=== PATIENT | male | born 1955 | race Caucasian/White ===

== ENCOUNTER 2018-04-29 13:05 | Emergency (ER) | payer MEDICARE, OTHER ==
[~2018-04-29] VITALS: Ht 188 cm; Wt 87.0 kg
[2018-04-29 13:39] LABS: CLARITY,URINE CLEAR (Clear); COLOR,URINE YELLOW (Yellow); GLUCOSE, URINE NEGATIVE (Neg); KETONES,URINE NEGATIVE (Neg); LEUKOCYTE ESTERASE ,URINE MODERATE (Neg); NITRITES, URINE NEGATIVE (Neg); OCCULT BLOOD,URINE NEGATIVE (Neg); PH,URINE 6.5 (4.8-8.0); PROTEIN,URINE NEGATIVE (Neg); UROBILINOGEN,URINE 0.2 E.U/dL (0.2-1.0)
[2018-04-29 13:48] LABS: UA COLLECTION TYPE CLN CATCH MIDSTREAM
[2018-04-29 13:49] LABS: BACTERIA,URINE 1+ /HPF (Neg); MUCUS STRANDS FEW /LPF (Neg); RBC,URINE 0-2 /HPF (0-2); SQUAMOUS EPITHELIAL CELL,UR FEW /LPF (FEW)
[2018-04-29 13:50] LABS: BASOPHILS # (AUTO) 0.1 X10'3 (0-0.2); BASOPHILS % (AUTO) 1.6 % (0-1); EOSINOPHILS # (AUTO) 0.2 X10'3 (0-0.9); EOSINOPHILS % (AUTO) 2.9 % (0-6); HEMATOCRIT 46.6 % (42.0-52.0); HEMOGLOBIN 15.6 g/dl (14.0-17.9); LYMPHOCYTES # (AUTO) 1.5 X10'3 (1.1-4.8); LYMPHOCYTES % (AUTO) 17.9 % (21-51); MEAN CORPUSCULAR HEMOGLOBIN 31.8 PG (27.0-31.0); MEAN CORPUSCULAR HGB CONC 33.4 % (33.0-36.5); MEAN CORPUSCULAR VOLUME 95.3 FL (78-98); MEAN PLATELET VOLUME 11.2 FL (7.4-10.4); MONOCYTES # (AUTO) 0.7 X10'3 (0-0.9); MONOCYTES % (AUTO) 8.1 % (2-12); NEUTROPHILS # (AUTO) 5.8 X10'3 (1.8-7.7); NEUTROPHILS % (AUTO) 69.5 % (42-75); PLATELET COUNT 155 X10'3 (140-440); RED BLOOD COUNT 4.89 X10'6 (4.70-6.10); RED CELL DISTRIBUTION WIDTH 15.2 % (11.5-14.5); WHITE BLOOD COUNT 8.3 X10'3 (4.5-11.0)
[2018-04-29 14:02] LABS: PROTHROMBIN TIME 10.2 SECONDS (9.0-12.0)
[2018-04-29 14:05] LABS: ALANINE AMINOTRANSFERASE 36 U/L (12-78); ALBUMIN 3.4 G/DL (3.4-5.0); ALKALINE PHOSPHATASE 126 IU/L (46-116); ANION GAP 10 (8-16); ASPARTATE AMINO TRANSFERASE 30 U/L (10-37); BILIRUBIN,TOTAL 0.7 MG/DL (0.1-1.0); BLOOD UREA NITROGEN 3 MG/DL (7-18); CALCIUM 8.6 MG/DL (8.5-10.1); CHLORIDE 102 MMOL/L (99-107); GLUCOSE 88 MG/DL (70-104); LARGE PLATELETS FEW; PLATELET ESTIMATE NORMAL; POTASSIUM 3.4 MMOL/L (3.5-5.1); SODIUM 139 MMOL/L (135-145); TOTAL CARBON DIOXIDE 26.8 MMOL/L (24-32); TOTAL PROTEIN 6.7 G/DL (6.4-8.2)
[2018-04-29 14:17] LABS: BUN/CREATININE RATIO 4.3 (5.4-32.0); CREATININE 0.69 MG/DL (0.60-1.10); eGFR > 90 ML/MIN
[2018-04-29] MEDS ORDERED: HYDROcodone/acetaminophen 10/325mg tab PO ONE (14:40)
[2018-04-29] MEDS ORDERED: LEVO500T89 PO (14:41)
[2018-04-29] MEDS ORDERED: ACET1TAB12 PO (14:57)
[2018-04-29 15:05] VITALS: BP 114/65
== END 2018-04-29 15:08 | disposition home or self-care (01) ==
LOC: ER 13:06
DX: N39.0 Urinary tract infection, site not specified (principal); R05 Cough; R79.1 Abnormal coagulation profile; F17.200 Nicotine dependence, unspecified, uncomplicated; Z79.2 Long term (current) use of antibiotics; Z87.440 Personal history of urinary (tract) infections
CPT/HCPCS: 36415; 74176; 80053; 81001; 85025; 85610; 87077; 87088; 87186; 99285

== ENCOUNTER 2018-08-30 18:57 | Emergency (ER) | payer MEDICARE ==
[~2018-08-30] VITALS: Ht 188 cm; Wt 88.6 kg
[~2018-08-30 18:57] MED LIST: ACET1TAB12 PO
[2018-08-30 20:08] LABS: CLARITY,URINE CLEAR (Clear); COLOR,URINE YELLOW (Yellow); GLUCOSE, URINE NEGATIVE (Neg); KETONES,URINE NEGATIVE (Neg); LEUKOCYTE ESTERASE ,URINE TRACE (Neg); NITRITES, URINE NEGATIVE (Neg); OCCULT BLOOD,URINE NEGATIVE (Neg); PROTEIN,URINE NEGATIVE (Neg); UROBILINOGEN,URINE 0.2 E.U/dL (0.2-1.0)
[2018-08-30 20:11] LABS: BASOPHILS # (AUTO) 0.1 X10'3 (0-0.2); EOSINOPHILS % (AUTO) 2.4 % (0-6); HEMATOCRIT 45.8 % (42.0-52.0); RED CELL DISTRIBUTION WIDTH 15.7 % (11.5-14.5)
[2018-08-30 20:13] LABS: BASOPHILS % (AUTO) 0.9 % (0-1); EOSINOPHILS # (AUTO) 0.1 X10'3 (0-0.9); HEMOGLOBIN 15.7 g/dl (14.0-17.9); LYMPHOCYTES # (AUTO) 1.5 X10'3 (1.1-4.8); LYMPHOCYTES % (AUTO) 24.1 % (21-51); MEAN CORPUSCULAR HEMOGLOBIN 33.7 PG (27.0-31.0); MEAN CORPUSCULAR HGB CONC 34.3 g/dL (33.0-36.5); MEAN CORPUSCULAR VOLUME 98.4 FL (78-98); MEAN PLATELET VOLUME 10.6 FL (7.4-10.4); MONOCYTES # (AUTO) 0.8 X10'3 (0-0.9); MONOCYTES % (AUTO) 12.9 % (2-12); NEUTROPHILS # (AUTO) 3.7 X10'3 (1.8-7.7); NEUTROPHILS % (AUTO) 59.7 % (42-75); PLATELET COUNT 137 X10'3 (140-440); RED BLOOD COUNT 4.66 X10'6 (4.70-6.10); WHITE BLOOD COUNT 6.2 X10'3 (4.5-11.0)
[2018-08-30 20:21] LABS: PROTHROMBIN TIME 10.4 SECONDS (9.0-12.0)
[2018-08-30 20:23] LABS: ALANINE AMINOTRANSFERASE 62 U/L (12-78); ALBUMIN 3.4 G/DL (3.4-5.0); ALBUMIN/GLOBULIN RATIO 0.9 (1.1-1.5); ALKALINE PHOSPHATASE 150 IU/L (46-116); AMYLASE 87 U/L (25-115); ANION GAP 13 (8-16); ASPARTATE AMINO TRANSFERASE 83 U/L (10-37); BILIRUBIN,TOTAL 0.8 MG/DL (0.1-1.0); BLOOD UREA NITROGEN 4 MG/DL (7-18); BUN/CREATININE RATIO 5.7 (5.4-32.0); CALCIUM 8.9 MG/DL (8.5-10.1); CHLORIDE 101 MMOL/L (99-107); GLUCOSE 112 MG/DL (70-104); LIPASE 216 U/L (73-393); POTASSIUM 3.8 MMOL/L (3.5-5.1); SODIUM 138 MMOL/L (135-145); TOTAL CARBON DIOXIDE 24.1 MMOL/L (24-32); eGFR > 90 ML/MIN
[2018-08-30 20:28] LABS: UA COLLECTION TYPE VOIDED
[2018-08-30 20:31] LABS: BACTERIA,URINE 2+ /HPF (Neg); RBC,URINE 0-2 /HPF (0-2); SQUAMOUS EPITHELIAL CELL,UR FEW /LPF (FEW); WBC,URINE 0-4 /HPF (0-4)
[2018-08-30 20:45] LABS: LARGE PLATELETS FEW; PLATELET ESTIMATE DECREASED
[2018-08-30] MEDS ORDERED: ONDA4TAB6 PO (22:24)
[2018-08-30] MEDS ORDERED: OMEP20CA10 PO (22:24)
[2018-08-30] MEDS ORDERED: FAMO20TA44 PO (22:24)
[2018-08-30] MEDS ORDERED: LIDOcaine Viscous 15ml cup MM PRN (22:25)
[2018-08-30] MEDS ORDERED: sucralfate 1gm/10ml UD suspension PO SCH (22:25)
[2018-08-30] MEDS ORDERED: mag hydrox/Alum hydrox/simeth 30ml oral suspension PO ONE (22:25)
[2018-08-30 22:42] VITALS: BP 119/83
== END 2018-08-30 22:44 | disposition home or self-care (01) ==
LOC: ER 19:00
DX: K29.00 Acute gastritis without bleeding (principal); R10.13 Epigastric pain; Z90.49 Acquired absence of other specified parts of digestive tract
CPT/HCPCS: 36415; 80053; 81001; 82150; 83690; 85025; 85610; 87077; 87088; 87186; 99283

== ENCOUNTER 2018-10-17 20:14 | Emergency (ER) | payer MEDICARE ==
[~2018-10-17] VITALS: Ht 188 cm; Wt 88.2 kg
[~2018-10-17 20:14] MED LIST changes: +FAMO20TA44 PO; +OMEP20CA10 PO; +ONDA4TAB6 PO
[2018-10-17 21:48] LABS: CLARITY,URINE CLEAR (Clear); COLOR,URINE YELLOW (Yellow); GLUCOSE, URINE NEGATIVE (Neg); KETONES,URINE 15 mg/dl (Neg); LEUKOCYTE ESTERASE ,URINE NEGATIVE (Neg); NITRITES, URINE NEGATIVE (Neg); OCCULT BLOOD,URINE NEGATIVE (Neg); PH,URINE 6.5 (4.8-8.0); PROTEIN,URINE NEGATIVE (Neg); UROBILINOGEN,URINE 0.2 E.U/dL (0.2-1.0)
[2018-10-17] MEDS ORDERED: ondansetron/PF 4mg/2ml inj IV ONE (21:50)
[2018-10-17] MEDS ORDERED: normal saline 1000ML IV soln IVB ONE (21:50)
[2018-10-17 21:51] LABS: UA COLLECTION TYPE CLN CATCH MIDSTREAM
[2018-10-17 21:52] LABS: BASOPHILS # (AUTO) 0.1 X10'3 (0-0.2); BASOPHILS % (AUTO) 0.9 % (0-1); EOSINOPHILS # (AUTO) 0.3 X10'3 (0-0.9); EOSINOPHILS % (AUTO) 3.6 % (0-6); HEMATOCRIT 42.5 % (42.0-52.0); HEMOGLOBIN 14.5 g/dl (14.0-17.9); LYMPHOCYTES # (AUTO) 1.9 X10'3 (1.1-4.8); LYMPHOCYTES % (AUTO) 22.8 % (21-51); MEAN CORPUSCULAR HEMOGLOBIN 33.4 PG (27.0-31.0); MEAN CORPUSCULAR VOLUME 98.2 FL (78-98); MEAN PLATELET VOLUME 10.6 FL (7.4-10.4); MONOCYTES # (AUTO) 0.8 X10'3 (0-0.9); MONOCYTES % (AUTO) 10.3 % (2-12); NEUTROPHILS # (AUTO) 5.1 X10'3 (1.8-7.7); NEUTROPHILS % (AUTO) 62.4 % (42-75); PLATELET COUNT 162 X10'3 (140-440); RED BLOOD COUNT 4.33 X10'6 (4.70-6.10); RED CELL DISTRIBUTION WIDTH 13.8 % (11.5-14.5); WHITE BLOOD COUNT 8.2 X10'3 (4.5-11.0)
[2018-10-17 22:00] LABS: ALANINE AMINOTRANSFERASE 75 U/L (12-78); ALBUMIN 3.2 G/DL (3.4-5.0); ALKALINE PHOSPHATASE 158 IU/L (46-116); ANION GAP 11 (8-16); ASPARTATE AMINO TRANSFERASE 82 U/L (10-37); BLOOD UREA NITROGEN 11 MG/DL (7-18); BUN/CREATININE RATIO 17.2 (5.4-32.0); CALCIUM 8.3 MG/DL (8.5-10.1); CHLORIDE 103 MMOL/L (99-107); CREATININE 0.64 MG/DL (0.60-1.10); GLUCOSE 84 MG/DL (70-104); LIPASE 230 U/L (73-393); POTASSIUM 3.6 MMOL/L (3.5-5.1); SODIUM 137 MMOL/L (135-145); TOTAL CARBON DIOXIDE 22.6 MMOL/L (24-32); TOTAL PROTEIN 6.4 G/DL (6.4-8.2); eGFR > 90 ML/MIN
[2018-10-17] MEDS: morphine 4 MG/ML inj SYRINge IV PRN (22:02)
[2018-10-17 22:09] LABS: INR 1.1 INR
[2018-10-17 23:01] LABS: LARGE PLATELETS FEW; PLATELET ESTIMATE NORMAL
[2018-10-18] MEDS: morphine 4 MG/ML inj SYRINge IV PRN (00:08)
[2018-10-18] MEDS ORDERED: ondansetron 4mg rapidly disintigrating tab PO ONE (02:55)
[2018-10-18 03:30] VITALS: BP 120/70
== END 2018-10-18 03:26 | disposition home or self-care (01) ==
LOC: ER 20:14
DX: K85.90 Acute pancreatitis without necrosis or infection, unspecified (principal); R11.2 Nausea with vomiting, unspecified; Z90.49 Acquired absence of other specified parts of digestive tract; Z79.899 Other long term (current) drug therapy
CPT/HCPCS: 36415; 80053; 81003; 83690; 85025; 85610; 86885; 86900; 86901; 96361; 96374; 96375; 96376; 99283; J2270; J2405; J7030

== ENCOUNTER 2018-10-19 15:38 | Emergency (ER) | payer MEDICARE ==
[~2018-10-19] VITALS: Ht 188 cm; Wt 88.6 kg
[2018-10-19] MEDS ORDERED: normal saline 1000ml 1,000 ML IV ONE ×2 (16:15→17:55)
[2018-10-19] MEDS ORDERED: HYDROmorphone inj. 0.5 MG/0.5 ML DISP.SYRIN IV ONE ×2 (16:15→17:55)
[2018-10-19] MEDS ORDERED: ondansetron/PF 4mg/2ml inj IV ONE (16:15)
[2018-10-19 16:16] LABS: BASOPHILS # (AUTO) 0.1 X10'3 (0-0.2); BASOPHILS % (AUTO) 0.7 % (0-1); EOSINOPHILS # (AUTO) 0.1 X10'3 (0-0.9); EOSINOPHILS % (AUTO) 1.7 % (0-6); HEMATOCRIT 32.2 % (42.0-52.0); HEMOGLOBIN 11.2 g/dl (14.0-17.9); LYMPHOCYTES # (AUTO) 1.5 X10'3 (1.1-4.8); LYMPHOCYTES % (AUTO) 17.6 % (21-51); MEAN CORPUSCULAR HEMOGLOBIN 33.8 PG (27.0-31.0); MEAN CORPUSCULAR HGB CONC 34.7 g/dL (33.0-36.5); MEAN CORPUSCULAR VOLUME 97.5 FL (78-98); MEAN PLATELET VOLUME 10.1 FL (7.4-10.4); MONOCYTES # (AUTO) 0.5 X10'3 (0-0.9); MONOCYTES % (AUTO) 5.9 % (2-12); NEUTROPHILS # (AUTO) 6.3 X10'3 (1.8-7.7); NEUTROPHILS % (AUTO) 74.1 % (42-75); PLATELET COUNT 113 X10'3 (140-440); RED CELL DISTRIBUTION WIDTH 13.8 % (11.5-14.5); WHITE BLOOD COUNT 8.5 X10'3 (4.5-11.0)
[2018-10-19 16:32] LABS: ALANINE AMINOTRANSFERASE 47 U/L (12-78); ALBUMIN 3.1 G/DL (3.4-5.0); ALBUMIN/GLOBULIN RATIO 1.1 (1.1-1.5); ALKALINE PHOSPHATASE 124 IU/L (46-116); ANION GAP 6 (8-16); ASPARTATE AMINO TRANSFERASE 37 U/L (10-37); BILIRUBIN,TOTAL 1.3 MG/DL (0.1-1.0); BLOOD UREA NITROGEN 5 MG/DL (7-18); BUN/CREATININE RATIO 7.7 (5.4-32.0); CALCIUM 8.3 MG/DL (8.5-10.1); CHLORIDE 98 MMOL/L (99-107); CREATININE 0.65 MG/DL (0.60-1.10); GLUCOSE 89 MG/DL (70-104); LIPASE 292 U/L (73-393); POTASSIUM 3.2 MMOL/L (3.5-5.1); SODIUM 134 MMOL/L (135-145); TOTAL CARBON DIOXIDE 29.8 MMOL/L (24-32); TOTAL PROTEIN 5.9 G/DL (6.4-8.2); eGFR > 90 ML/MIN
[2018-10-19 16:47] LABS: INR 1.1 INR
[2018-10-19 17:15] LABS: CLARITY,URINE CLEAR (Clear); COLOR,URINE STRAW (Yellow); GLUCOSE, URINE NEGATIVE (Neg); KETONES,URINE NEGATIVE (Neg); LEUKOCYTE ESTERASE ,URINE NEGATIVE (Neg); NITRITES, URINE NEGATIVE (Neg); OCCULT BLOOD,URINE NEGATIVE (Neg); PH,URINE 7.5 (4.8-8.0); PROTEIN,URINE NEGATIVE (Neg); UROBILINOGEN,URINE 0.2 E.U/dL (0.2-1.0)
[2018-10-19 17:23] LABS: UA COLLECTION TYPE CLN CATCH MIDSTREAM
[2018-10-19] MEDS ORDERED: famotidine/PF 10 mg/ml inj IV ONE (17:55)
[2018-10-19 19:13] VITALS: BP 131/65
== END 2018-10-19 19:17 | disposition home or self-care (01) ==
LOC: ER 15:38
DX: R10.11 Right upper quadrant pain (principal); R10.13 Epigastric pain; G89.29 Other chronic pain; Z90.49 Acquired absence of other specified parts of digestive tract; Z87.19 Personal history of other diseases of the digestive system; Z79.899 Other long term (current) drug therapy
CPT/HCPCS: 36415; 80053; 81003; 83690; 85025; 85610; 96361; 96374; 96375; 96376; 99284; J1170; J2405; J3490; J7030

== ENCOUNTER 2018-10-22 22:54 | Emergency (ER) | payer MEDICARE ==
[~2018-10-22] VITALS: Ht 188 cm; Wt 88.0 kg
[2018-10-22 22:55] VITALS: BP 111/71
[2018-10-22 23:28] LABS: BASOPHILS % (AUTO) 0.6 % (0-1); EOSINOPHILS # (AUTO) 0.1 X10'3 (0-0.9); EOSINOPHILS % (AUTO) 2.1 % (0-6); HEMATOCRIT 31.8 % (42.0-52.0); HEMOGLOBIN 10.8 g/dl (14.0-17.9); LYMPHOCYTES % (AUTO) 20.6 % (21-51); MEAN CORPUSCULAR HEMOGLOBIN 33.7 PG (27.0-31.0); MEAN CORPUSCULAR VOLUME 99.3 FL (78-98); MEAN PLATELET VOLUME 10.7 FL (7.4-10.4); MONOCYTES # (AUTO) 0.8 X10'3 (0-0.9); MONOCYTES % (AUTO) 16.2 % (2-12); NEUTROPHILS # (AUTO) 2.9 X10'3 (1.8-7.7); NEUTROPHILS % (AUTO) 60.5 % (42-75); PLATELET COUNT 92 X10'3 (140-440); RED CELL DISTRIBUTION WIDTH 14.2 % (11.5-14.5); WHITE BLOOD COUNT 4.8 X10'3 (4.5-11.0)
[2018-10-22 23:46] LABS: ALANINE AMINOTRANSFERASE 35 U/L (12-78); ALBUMIN 2.7 G/DL (3.4-5.0); ALBUMIN/GLOBULIN RATIO 0.8 (1.1-1.5); ALKALINE PHOSPHATASE 120 IU/L (46-116); AMYLASE 106 U/L (25-115); ANION GAP 9 (8-16); ASPARTATE AMINO TRANSFERASE 38 U/L (10-37); BILIRUBIN,TOTAL 0.5 MG/DL (0.1-1.0); BLOOD UREA NITROGEN 3 MG/DL (7-18); BUN/CREATININE RATIO 5.1 (5.4-32.0); CALCIUM 7.7 MG/DL (8.5-10.1); CHLORIDE 103 MMOL/L (99-107); CREATININE 0.59 MG/DL (0.60-1.10); GLUCOSE 86 MG/DL (70-104); LIPASE 331 U/L (73-393); SODIUM 136 MMOL/L (135-145); TOTAL CARBON DIOXIDE 24.5 MMOL/L (24-32); TOTAL PROTEIN 5.9 G/DL (6.4-8.2); eGFR > 90 ML/MIN
[2018-10-22 23:49] LABS: INR 1.1 INR; POTASSIUM 3.3 MMOL/L (3.5-5.1)
[2018-10-23] MEDS ORDERED: OMEP40CA37 PO (00:22)
[2018-10-23] MEDS ORDERED: HYDROcodone/acetaminophen 5mg/325mg tablet PO ONE (00:25)
[2018-10-23] MEDS ORDERED: famotidine 20mg tablet PO ONE (00:25)
[2018-10-23] MEDS ORDERED: ondansetron 4mg rapidly disintigrating tab PO ONE (00:25)
[2018-10-23] MEDS ORDERED: ibuprofen tablet 400 MG TABLET PO ONE (00:25)
== END 2018-10-23 00:32 | disposition home or self-care (01) ==
LOC: ER 22:55
DX: R10.33 Periumbilical pain (principal); R10.13 Epigastric pain; R19.7 Diarrhea, unspecified; G89.29 Other chronic pain; Z90.49 Acquired absence of other specified parts of digestive tract; Z56.0 Unemployment, unspecified
CPT/HCPCS: 36415; 80053; 82150; 83690; 85025; 85610; 99284

== ENCOUNTER 2018-10-28 21:46 | Emergency (ER) | payer MEDICARE ==
[~2018-10-28] VITALS: Ht 188 cm; Wt 88.0 kg
[~2018-10-28 21:46] MED LIST changes: +OMEP40CA37 PO
[2018-10-28 22:17] LABS: BASOPHILS # (AUTO) 0.1 X10'3 (0-0.2); EOSINOPHILS # (AUTO) 0.1 X10'3 (0-0.9); EOSINOPHILS % (AUTO) 1.8 % (0-6); HEMATOCRIT 38.7 % (42.0-52.0); LYMPHOCYTES # (AUTO) 1.9 X10'3 (1.1-4.8); LYMPHOCYTES % (AUTO) 23.1 % (21-51); MEAN CORPUSCULAR HEMOGLOBIN 33.1 PG (27.0-31.0); MEAN CORPUSCULAR HGB CONC 33.6 g/dL (33.0-36.5); MEAN CORPUSCULAR VOLUME 98.4 FL (78-98); MEAN PLATELET VOLUME 9.9 FL (7.4-10.4); MONOCYTES # (AUTO) 1.1 X10'3 (0-0.9); MONOCYTES % (AUTO) 13.5 % (2-12); NEUTROPHILS % (AUTO) 60.6 % (42-75); PLATELET COUNT 249 X10'3 (140-440); RED BLOOD COUNT 3.93 X10'6 (4.70-6.10); RED CELL DISTRIBUTION WIDTH 13.9 % (11.5-14.5); WHITE BLOOD COUNT 8.3 X10'3 (4.5-11.0)
[2018-10-28 22:26] LABS: INR 1.1 INR
[2018-10-28 22:28] LABS: ALANINE AMINOTRANSFERASE 34 U/L (12-78); ALBUMIN 3.3 G/DL (3.4-5.0); ALBUMIN/GLOBULIN RATIO 0.9 (1.1-1.5); ALKALINE PHOSPHATASE 142 IU/L (46-116); AMYLASE 154 U/L (25-115); ANION GAP 11 (8-16); ASPARTATE AMINO TRANSFERASE 33 U/L (10-37); BILIRUBIN,TOTAL 0.8 MG/DL (0.1-1.0); BLOOD UREA NITROGEN 3 MG/DL (7-18); BUN/CREATININE RATIO 4.2 (5.4-32.0); CALCIUM 8.6 MG/DL (8.5-10.1); CHLORIDE 97 MMOL/L (99-107); CREATININE 0.72 MG/DL (0.60-1.10); GLUCOSE 91 MG/DL (70-104); LIPASE 485 U/L (73-393); POTASSIUM 3.6 MMOL/L (3.5-5.1); SODIUM 134 MMOL/L (135-145); TOTAL PROTEIN 6.9 G/DL (6.4-8.2); eGFR > 90 ML/MIN
[2018-10-29 00:05] LABS: CLARITY,URINE CLEAR (Clear); COLOR,URINE YELLOW (Yellow); GLUCOSE, URINE NEGATIVE (Neg); KETONES,URINE NEGATIVE (Neg); LEUKOCYTE ESTERASE ,URINE NEGATIVE (Neg); NITRITES, URINE NEGATIVE (Neg); OCCULT BLOOD,URINE NEGATIVE (Neg); PH,URINE 5.5 (4.8-8.0); PROTEIN,URINE NEGATIVE (Neg); UROBILINOGEN,URINE 0.2 E.U/dL (0.2-1.0)
[2018-10-29 00:06] LABS: UA COLLECTION TYPE CLN CATCH MIDSTREAM
[2018-10-29 01:26] VITALS: BP 118/72
[2018-10-29] MEDS ORDERED: HYDROcodone/acetaminophen 10/325mg tab PO ONE (02:00)
[2018-10-29] MEDS ORDERED: ondansetron 4mg rapidly disintigrating tab PO ONE (02:00)
== END 2018-10-29 02:44 | disposition home or self-care (01) ==
LOC: ER 21:46
DX: K86.1 Other chronic pancreatitis (principal); Z79.899 Other long term (current) drug therapy; Z90.49 Acquired absence of other specified parts of digestive tract; Z60.2 Problems related to living alone; Z56.0 Unemployment, unspecified
CPT/HCPCS: 36415; 80053; 81003; 82150; 83690; 85025; 85610; 99283

== ENCOUNTER 2018-11-30 15:08 | Emergency (ER) | payer MEDICARE ==
[~2018-11-30] VITALS: Ht 188 cm; Wt 88.6 kg
[~2018-11-30 15:08] MED LIST changes: -OMEP20CA10 PO; +OMEP20CA11 PO; -OMEP40CA37 PO
[2018-11-30 15:46] VITALS: BP 112/71
[2018-11-30 16:54] LABS: BASOPHILS # (AUTO) 0.1 X10'3 (0-0.2); EOSINOPHILS # (AUTO) 0.1 X10'3 (0-0.9); EOSINOPHILS % (AUTO) 2.1 % (0-6); HEMATOCRIT 38.7 % (42.0-52.0); HEMOGLOBIN 12.8 g/dl (14.0-17.9); LYMPHOCYTES % (AUTO) 17.5 % (21-51); MEAN CORPUSCULAR HEMOGLOBIN 30.4 PG (27.0-31.0); MEAN CORPUSCULAR HGB CONC 33.1 g/dL (33.0-36.5); MEAN CORPUSCULAR VOLUME 91.9 FL (78-98); MEAN PLATELET VOLUME 11.1 FL (7.4-10.4); MONOCYTES # (AUTO) 0.6 X10'3 (0-0.9); MONOCYTES % (AUTO) 11.8 % (2-12); NEUTROPHILS # (AUTO) 3.7 X10'3 (1.8-7.7); NEUTROPHILS % (AUTO) 67.6 % (42-75); PLATELET COUNT 132 X10'3 (140-440); RED BLOOD COUNT 4.21 X10'6 (4.70-6.10); RED CELL DISTRIBUTION WIDTH 14.8 % (11.5-14.5); WHITE BLOOD COUNT 5.4 X10'3 (4.5-11.0)
[2018-11-30 17:06] LABS: LARGE PLATELETS FEW; PLATELET ESTIMATE DECREASED
[2018-11-30 17:08] LABS: ALANINE AMINOTRANSFERASE 36 U/L (12-78); ALBUMIN 3.3 G/DL (3.4-5.0); ALKALINE PHOSPHATASE 189 IU/L (46-116); ANION GAP 11 (8-16); ASPARTATE AMINO TRANSFERASE 43 U/L (10-37); BILIRUBIN,TOTAL 0.6 MG/DL (0.1-1.0); BLOOD UREA NITROGEN 3 MG/DL (7-18); CALCIUM 9.4 MG/DL (8.5-10.1); CHLORIDE 104 MMOL/L (99-107); GLUCOSE 116 MG/DL (70-104); LIPASE 151 U/L (73-393); POTASSIUM 3.3 MMOL/L (3.5-5.1); SODIUM 137 MMOL/L (135-145); TOTAL CARBON DIOXIDE 22.4 MMOL/L (24-32); TOTAL PROTEIN 6.7 G/DL (6.4-8.2); eGFR > 90 ML/MIN
[2018-11-30] MEDS ORDERED: LIDOcaine Viscous 15ml cup PO ONE (18:15)
[2018-11-30] MEDS ORDERED: morphine 4 MG/ML inj SYRINge IM ONE (18:15)
[2018-11-30] MEDS ORDERED: mag hydrox/Alum hydrox/simeth 30ml oral suspension PO ONE (18:15)
[2018-11-30] MEDS ORDERED: sucralfate 1gm/10ml UD suspension PO STA (18:15)
--- NOTE | 2018-11-30 18:22 | NUR ---
pt had 3 x 12 oz beers today.
[2018-11-30] MEDS ORDERED: SUCR1TAB34 PO (18:23)
[2018-11-30] MEDS ORDERED: ONDA4TAB6 PO (18:23)
[2018-11-30] MEDS ORDERED: ondansetron 4mg rapidly disintigrating tab PO ONE (18:25)
== END 2018-11-30 18:43 | disposition home or self-care (01) ==
LOC: ER 15:08
DX: R10.13 Epigastric pain (principal); R11.2 Nausea with vomiting, unspecified; R19.7 Diarrhea, unspecified; G89.29 Other chronic pain; Z90.49 Acquired absence of other specified parts of digestive tract; Z79.899 Other long term (current) drug therapy; Z60.2 Problems related to living alone
CPT/HCPCS: 36415; 80053; 83690; 85025; 85610; 96372; 99284; J2270

== ENCOUNTER 2019-01-27 15:19 | Emergency (ER) | payer MEDICARE ==
[~2019-01-27] VITALS: Ht 188 cm; Wt 62.5 kg
[~2019-01-27 15:19] MED LIST changes: +SUCR1TAB34 PO
[2019-01-27 15:51] LABS: BASOPHILS # (AUTO) 0.1 X10'3 (0-0.2); EOSINOPHILS # (AUTO) 0.1 X10'3 (0-0.9); EOSINOPHILS % (AUTO) 1.6 % (0-6); MONOCYTES # (AUTO) 0.8 X10'3 (0-0.9)
[2019-01-27 15:52] LABS: BASOPHILS % (AUTO) 1.4 % (0-1); HEMOGLOBIN 13.7 g/dl (14.0-17.9); LYMPHOCYTES # (AUTO) 1.3 X10'3 (1.1-4.8); LYMPHOCYTES % (AUTO) 19.1 % (21-51); MEAN CORPUSCULAR HEMOGLOBIN 28.7 PG (27.0-31.0); MEAN CORPUSCULAR HGB CONC 33.3 g/dL (33.0-36.5); MEAN CORPUSCULAR VOLUME 86.3 FL (78-98); MEAN PLATELET VOLUME 10.7 FL (7.4-10.4); MONOCYTES % (AUTO) 11.8 % (2-12); NEUTROPHILS # (AUTO) 4.4 X10'3 (1.8-7.7); NEUTROPHILS % (AUTO) 66.1 % (42-75); PLATELET COUNT 127 X10'3 (140-440); RED BLOOD COUNT 4.75 X10'6 (4.70-6.10); RED CELL DISTRIBUTION WIDTH 18.4 % (11.5-14.5); WHITE BLOOD COUNT 6.7 X10'3 (4.5-11.0)
[2019-01-27 15:55] LABS: CLARITY,URINE CLEAR (Clear); COLOR,URINE STRAW (Yellow); GLUCOSE, URINE NEGATIVE (Neg); KETONES,URINE TRACE mg/dl (Neg); LEUKOCYTE ESTERASE ,URINE TRACE (Neg); NITRITES, URINE NEGATIVE (Neg); OCCULT BLOOD,URINE NEGATIVE (Neg); PROTEIN,URINE NEGATIVE (Neg); UROBILINOGEN,URINE 0.2 E.U/dL (0.2-1.0)
[2019-01-27 15:56] LABS: UA COLLECTION TYPE CLN CATCH MIDSTREAM
[2019-01-27 16:02] LABS: ALANINE AMINOTRANSFERASE 54 U/L (12-78); ALBUMIN 3.4 G/DL (3.4-5.0); ALBUMIN/GLOBULIN RATIO 0.9 (1.1-1.5); ALKALINE PHOSPHATASE 156 IU/L (46-116); ANION GAP 10 (8-16); ASPARTATE AMINO TRANSFERASE 81 U/L (10-37); BILIRUBIN,TOTAL 1.1 MG/DL (0.1-1.0); CALCIUM 8.7 MG/DL (8.5-10.1); CHLORIDE 104 MMOL/L (99-107); GLUCOSE 98 MG/DL (70-104); POTASSIUM 3.2 MMOL/L (3.5-5.1); SODIUM 138 MMOL/L (135-145); TOTAL CARBON DIOXIDE 24.3 MMOL/L (24-32); TOTAL PROTEIN 7.2 G/DL (6.4-8.2)
[2019-01-27 16:03] LABS: BACTERIA,URINE 3+ /HPF (Neg); MUCUS STRANDS NONE SEEN /LPF (Neg); RBC,URINE NONE SEEN /HPF (0-2); SQUAMOUS EPITHELIAL CELL,UR FEW /LPF (FEW); WBC CLUMPS,URINE FEW /HPF (NEGATIVE)
[2019-01-27 16:08] LABS: LARGE PLATELETS FEW; PLATELET ESTIMATE DECREASED
[2019-01-27 16:10] LABS: BLOOD UREA NITROGEN 2 MG/DL (7-18); BUN/CREATININE RATIO 2.9 (5.4-32.0); CREATININE 0.68 MG/DL (0.60-1.10); eGFR > 90 ML/MIN
[2019-01-27] MEDS ORDERED: ondansetron 4mg rapidly disintigrating tab PO ONE (16:25)
[2019-01-27] MEDS ORDERED: morphine 4 MG/ML inj SYRINge IV ONE ×2 (16:25→17:55)
[2019-01-27] MEDS ORDERED: normal saline 1000ML IV soln IVB ONE ×2 (16:25→17:30)
[2019-01-27 16:27] LABS: LIPASE 219 U/L (73-393)
--- NOTE | 2019-01-27 18:23 | NUR ---
PT REQUESTING FOOD. RONI WILSON OKAYED. PT GIVEN APPLESAUCE, JELLO, AND JUICE
[2019-01-27 18:55] VITALS: BP 130/69
== END 2019-01-27 19:01 | disposition home or self-care (01) ==
LOC: ER 15:19
DX: R10.13 Epigastric pain (principal); F10.10 Alcohol abuse, uncomplicated; R11.2 Nausea with vomiting, unspecified; K86.1 Other chronic pancreatitis; F11.23 Opioid dependence with withdrawal; G89.29 Other chronic pain; Z90.49 Acquired absence of other specified parts of digestive tract; Z56.0 Unemployment, unspecified; Z79.899 Other long term (current) drug therapy
CPT/HCPCS: 36415; 80053; 81001; 83690; 85025; 85610; 87077; 87088; 96361; 96374; 96376; 99283; J2270; J2405; J7030; 99284

== ENCOUNTER 2019-01-29 20:22 | Emergency (ER) | payer MEDICARE ==
[~2019-01-29] VITALS: Ht 188 cm; Wt 90.0 kg
--- NOTE | 2019-01-29 21:35 | NUR ---
ASSISTED PT TO CALL GROUPS PER DR COHEN REQUEST. PT CALLED AND SET UP APPOINTMENT FOR TOMORROW TO CONTINUE SUBOXONE CARE AFTER DISCHARGE.
[2019-01-29 23:01] VITALS: BP 119/65
[2019-01-30] MEDS ORDERED: buprenorphine/naloxone 8mg/2mg SL tablet SL ONE
== END 2019-01-29 23:05 | disposition home or self-care (01) ==
LOC: ER 20:22
DX: F11.20 Opioid dependence, uncomplicated (principal); R10.13 Epigastric pain; G89.29 Other chronic pain; F10.99 Alcohol use, unspecified with unspecified alcohol-induced disorder; Z90.49 Acquired absence of other specified parts of digestive tract; Z56.0 Unemployment, unspecified; Z60.2 Problems related to living alone; Z79.899 Other long term (current) drug therapy; Y90.9 Presence of alcohol in blood, level not specified
CPT/HCPCS: 99283

== ENCOUNTER 2019-04-02 21:56 | Emergency (ER) | payer MEDICARE ==
[~2019-04-02] VITALS: Ht 188 cm; Wt 92.0 kg
[2019-04-02 22:43] LABS: EOSINOPHILS # (AUTO) 0.3 X10'3 (0-0.9); HEMOGLOBIN 12.7 g/dl (14.0-17.9); LYMPHOCYTES # (AUTO) 1.5 X10'3 (1.1-4.8); MEAN CORPUSCULAR VOLUME 87.6 FL (78-98)
[2019-04-02 22:45] LABS: BASOPHILS # (AUTO) 0.1 X10'3 (0-0.2); BASOPHILS % (AUTO) 1.5 % (0-1); EOSINOPHILS % (AUTO) 3.9 % (0-6); HEMATOCRIT 37.2 % (42.0-52.0); LYMPHOCYTES % (AUTO) 18.4 % (21-51); MEAN CORPUSCULAR HEMOGLOBIN 29.8 PG (27.0-31.0); MEAN PLATELET VOLUME 10.1 FL (7.4-10.4); MONOCYTES # (AUTO) 0.8 X10'3 (0-0.9); MONOCYTES % (AUTO) 9.7 % (2-12); NEUTROPHILS # (AUTO) 5.4 X10'3 (1.8-7.7); NEUTROPHILS % (AUTO) 66.5 % (42-75); PLATELET COUNT 126 X10'3 (140-440); RED BLOOD COUNT 4.25 X10'6 (4.70-6.10); RED CELL DISTRIBUTION WIDTH 17.6 % (11.5-14.5); WHITE BLOOD COUNT 8.1 X10'3 (4.5-11.0)
[2019-04-02 23:00] LABS: ALANINE AMINOTRANSFERASE 41 U/L (12-78); ALBUMIN/GLOBULIN RATIO 0.8 (1.1-1.5); ALKALINE PHOSPHATASE 125 IU/L (46-116); ANION GAP 9 (8-16); ASPARTATE AMINO TRANSFERASE 66 U/L (10-37); BLOOD UREA NITROGEN 5 MG/DL (7-18); BUN/CREATININE RATIO 8.1 (5.4-32.0); CALCIUM 8.7 MG/DL (8.5-10.1); CHLORIDE 108 MMOL/L (99-107); CREATININE 0.62 MG/DL (0.60-1.10); GLUCOSE 90 MG/DL (70-104); LIPASE 233 U/L (73-393); POTASSIUM 3.2 MMOL/L (3.5-5.1); SODIUM 141 MMOL/L (135-145); TOTAL PROTEIN 6.8 G/DL (6.4-8.2); eGFR > 90 ML/MIN
[2019-04-02] MEDS ORDERED: pantoprazole 40mg Tablet.DR PO ONE (23:15)
[2019-04-02] MEDS ORDERED: mag hydrox/Alum hydrox/simeth 30ml oral suspension PO ONE (23:15)
[2019-04-02] MEDS ORDERED: famotidine 20mg tablet PO ONE (23:15)
[2019-04-02] MEDS ORDERED: HYDR-3965 PO (23:17)
[2019-04-02] MEDS ORDERED: PANT-47 PO (23:17)
[2019-04-02] MEDS ORDERED: HYDROcodone/acetaminophen 5mg/325mg tablet PO ONE (23:20)
[2019-04-02 23:38] VITALS: BP 133/77
== END 2019-04-02 23:39 | disposition home or self-care (01) ==
LOC: ER 21:57
DX: K29.70 Gastritis, unspecified, without bleeding (principal); G89.29 Other chronic pain; R10.9 Unspecified abdominal pain; K21.9 Gastro-esophageal reflux disease without esophagitis; Z56.0 Unemployment, unspecified; Z90.49 Acquired absence of other specified parts of digestive tract; Z79.899 Other long term (current) drug therapy
CPT/HCPCS: 36415; 80053; 83690; 85025; 85610; 99284

== ENCOUNTER 2019-04-08 17:33 | Emergency (ER) | payer MEDICARE ==
[~2019-04-08] VITALS: Ht 188 cm; Wt 90.9 kg
[~2019-04-08 17:33] MED LIST changes: +HYDR-3965 PO; +PANT-47 PO
[2019-04-08 19:28] LABS: BASOPHILS # (AUTO) 0.1 X10'3 (0-0.2); BASOPHILS % (AUTO) 0.8 % (0-1); EOSINOPHILS # (AUTO) 0.2 X10'3 (0-0.9); EOSINOPHILS % (AUTO) 3.6 % (0-6); HEMATOCRIT 36.3 % (42.0-52.0); HEMOGLOBIN 12.2 g/dl (14.0-17.9); LYMPHOCYTES # (AUTO) 1.3 X10'3 (1.1-4.8); LYMPHOCYTES % (AUTO) 19.4 % (21-51); MEAN CORPUSCULAR HEMOGLOBIN 30.2 PG (27.0-31.0); MEAN CORPUSCULAR HGB CONC 33.7 g/dL (33.0-36.5); MEAN CORPUSCULAR VOLUME 89.8 FL (78-98); MEAN PLATELET VOLUME 11.1 FL (7.4-10.4); MONOCYTES # (AUTO) 0.6 X10'3 (0-0.9); MONOCYTES % (AUTO) 9.1 % (2-12); NEUTROPHILS # (AUTO) 4.6 X10'3 (1.8-7.7); NEUTROPHILS % (AUTO) 67.1 % (42-75); PLATELET COUNT 103 X10'3 (140-440); RED BLOOD COUNT 4.04 X10'6 (4.70-6.10); RED CELL DISTRIBUTION WIDTH 17.6 % (11.5-14.5); WHITE BLOOD COUNT 6.9 X10'3 (4.5-11.0)
[2019-04-08 19:30] LABS: ALANINE AMINOTRANSFERASE 39 U/L (12-78); ALBUMIN 3.5 G/DL (3.4-5.0); ALBUMIN/GLOBULIN RATIO 0.9 (1.1-1.5); ALKALINE PHOSPHATASE 122 IU/L (46-116); AMYLASE 77 U/L (25-115); ANION GAP 10 (8-16); ASPARTATE AMINO TRANSFERASE 67 U/L (10-37); BLOOD UREA NITROGEN 1 MG/DL (7-18); BUN/CREATININE RATIO 1.4 (5.4-32.0); CHLORIDE 102 MMOL/L (99-107); CREATININE 0.74 MG/DL (0.60-1.10); GLUCOSE 104 MG/DL (70-104); LIPASE 140 U/L (73-393); POTASSIUM 3.6 MMOL/L (3.5-5.1); SODIUM 139 MMOL/L (135-145); TOTAL CARBON DIOXIDE 27.3 MMOL/L (24-32); TOTAL PROTEIN 7.3 G/DL (6.4-8.2); eGFR > 90 ML/MIN
[2019-04-08] MEDS ORDERED: ondansetron/PF 4mg/2ml inj IV ONE (20:25)
[2019-04-08] MEDS ORDERED: normal saline 1000ML IV soln IVB ONE (20:25)
[2019-04-08] MEDS ORDERED: ONDA4TAB6 PO (20:27)
[2019-04-08 20:39] VITALS: BP 126/71
== END 2019-04-08 20:55 | disposition home or self-care (01) ==
LOC: ER 17:34
DX: K52.9 Noninfective gastroenteritis and colitis, unspecified (principal); K21.9 Gastro-esophageal reflux disease without esophagitis; G89.29 Other chronic pain; F10.99 Alcohol use, unspecified with unspecified alcohol-induced disorder; Z90.49 Acquired absence of other specified parts of digestive tract; Z60.2 Problems related to living alone; Z79.899 Other long term (current) drug therapy; Z56.0 Unemployment, unspecified; Y90.9 Presence of alcohol in blood, level not specified
CPT/HCPCS: 36415; 80053; 82150; 83690; 85025; 85610; 96374; 99283; J2405; J7030

== ENCOUNTER 2019-05-10 22:46 | Emergency (ER) | payer MEDICARE ==
[~2019-05-10] VITALS: Ht 188 cm; Wt 77.8 kg
[~2019-05-10 22:46] MED LIST changes: -HYDR-3965 PO
[2019-05-10] MEDS ORDERED: normal saline 1000ML IV soln IVB ONE (23:25)
[2019-05-10] MEDS ORDERED: ondansetron/PF 4mg/2ml inj IV ONE (23:25)
[2019-05-10] MEDS ORDERED: famotidine 20mg tablet PO ONE (23:25)
[2019-05-10 23:51] LABS: ALANINE AMINOTRANSFERASE 37 U/L (12-78); ALBUMIN/GLOBULIN RATIO 0.9 (1.1-1.5); ALKALINE PHOSPHATASE 108 IU/L (46-116); ANION GAP 9 (8-16); ASPARTATE AMINO TRANSFERASE 50 U/L (10-37); BILIRUBIN,TOTAL 0.7 MG/DL (0.1-1.0); BLOOD UREA NITROGEN 4 MG/DL (7-18); BUN/CREATININE RATIO 6.5 (5.4-32.0); CALCIUM 8.4 MG/DL (8.5-10.1); CHLORIDE 98 MMOL/L (99-107); CREATININE 0.62 MG/DL (0.60-1.10); GLUCOSE 93 MG/DL (70-104); LIPASE 366 U/L (73-393); SODIUM 136 MMOL/L (135-145); TOTAL CARBON DIOXIDE 28.8 MMOL/L (24-32); TOTAL PROTEIN 6.2 G/DL (6.4-8.2); eGFR > 90 ML/MIN
[2019-05-10 23:53] LABS: POTASSIUM 2.8 MMOL/L (3.5-5.1)
[2019-05-10 23:56] LABS: BASOPHILS # (AUTO) 0.1 X10'3 (0-0.2); BASOPHILS % (AUTO) 0.8 % (0-1); EOSINOPHILS # (AUTO) 0.5 X10'3 (0-0.9); EOSINOPHILS % (AUTO) 6.9 % (0-6); HEMATOCRIT 37.4 % (42.0-52.0); HEMOGLOBIN 12.8 g/dl (14.0-17.9); LYMPHOCYTES # (AUTO) 1.5 X10'3 (1.1-4.8); LYMPHOCYTES % (AUTO) 21.3 % (21-51); MEAN CORPUSCULAR HEMOGLOBIN 29.9 PG (27.0-31.0); MEAN CORPUSCULAR HGB CONC 34.1 g/dL (33.0-36.5); MEAN CORPUSCULAR VOLUME 87.7 FL (78-98); MEAN PLATELET VOLUME 10.8 FL (7.4-10.4); NEUTROPHILS # (AUTO) 3.9 X10'3 (1.8-7.7); PLATELET COUNT 100 X10'3 (140-440); RED BLOOD COUNT 4.27 X10'6 (4.70-6.10); RED CELL DISTRIBUTION WIDTH 17.3 % (11.5-14.5); WHITE BLOOD COUNT 6.9 X10'3 (4.5-11.0)
[2019-05-11] MEDS ORDERED: potassium Cl 20 mEq SR tablet PO ONE
[2019-05-11] MEDS ORDERED: magnesium 2GM in 50ml NS 50 ML IV ONE
[2019-05-11] MEDS ORDERED: HYDROcodone/acetaminophen 5mg/325mg tablet PO ONE (00:40)
[2019-05-11] MEDS ORDERED: POTA10TA19 PO (00:42)
[2019-05-11] MEDS ORDERED: ONDA4TAB6 PO (00:42)
[2019-05-11 01:13] VITALS: BP 121/71
== END 2019-05-11 04:19 | disposition home or self-care (01) ==
LOC: ER 22:47
DX: F10.129 Alcohol abuse with intoxication, unspecified (principal); E87.6 Hypokalemia; K21.9 Gastro-esophageal reflux disease without esophagitis; G89.29 Other chronic pain; Z90.49 Acquired absence of other specified parts of digestive tract; Z60.2 Problems related to living alone; Z56.0 Unemployment, unspecified; Z79.899 Other long term (current) drug therapy; Y90.0 Blood alcohol level of less than 20 mg/100 ml
CPT/HCPCS: 36415; 80053; 83690; 85025; 96365; 96375; 99283; J2405; J3475; J7030

== ENCOUNTER 2019-06-01 22:21 | Emergency (ER) | payer MEDICARE ==
[~2019-06-01] VITALS: Ht 188 cm; Wt 93.2 kg
[~2019-06-01 22:21] MED LIST changes: +OMEP-297 PO; -OMEP20CA11 PO; +POTA10TA19 PO
[2019-06-01] MEDS ORDERED: famotidine 20mg tablet PO ONE (22:50)
[2019-06-01] MEDS ORDERED: HYDROcodone/acetaminophen 5mg/325mg tablet PO ONE (22:50)
[2019-06-01] MEDS ORDERED: ondansetron 4mg rapidly disintigrating tab PO ONE (22:50)
[2019-06-01] MEDS ORDERED: normal saline 1000ml 1,000 ML IV ONE (22:55)
[2019-06-01] MEDS ORDERED: famotidine 10mg tablet PO ONE (23:00)
[2019-06-01 23:22] LABS: BASOPHILS # (AUTO) 0.1 X10'3 (0-0.2); BASOPHILS % (AUTO) 0.9 % (0-1); EOSINOPHILS # (AUTO) 0.3 X10'3 (0-0.9); EOSINOPHILS % (AUTO) 3.8 % (0-6); HEMATOCRIT 37.5 % (42.0-52.0); HEMOGLOBIN 12.7 g/dl (14.0-17.9); LYMPHOCYTES # (AUTO) 1.9 X10'3 (1.1-4.8); LYMPHOCYTES % (AUTO) 25.3 % (21-51); MEAN CORPUSCULAR HEMOGLOBIN 29.8 PG (27.0-31.0); MEAN CORPUSCULAR HGB CONC 33.8 g/dL (33.0-36.5); MEAN PLATELET VOLUME 10.7 FL (7.4-10.4); MONOCYTES % (AUTO) 12.5 % (2-12); NEUTROPHILS # (AUTO) 4.4 X10'3 (1.8-7.7); NEUTROPHILS % (AUTO) 57.5 % (42-75); PLATELET COUNT 136 X10'3 (140-440); RED BLOOD COUNT 4.26 X10'6 (4.70-6.10); RED CELL DISTRIBUTION WIDTH 17.4 % (11.5-14.5); WHITE BLOOD COUNT 7.7 X10'3 (4.5-11.0)
--- NOTE | 2019-06-01 23:31 | NUR ---
1798 WRITTEN FOR DTS. 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 STEVE SMITH, TALKING WITH PT ABOUT 1798 PLACEMENT AND EXPLAINING THE PROCESS. PT IS AGREEABLE TO THIS PLAN. PT REPORTS TO THAT HE NEEDS HELP WITH HIS ALCOHOLISM BUT HE DOES NOT NOW HOW TO GO ABOUT IT. STATES HE HAS NO FAMILY AND ONE ESTRANGED BROTHER. 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 PT REMAINS CALM AND COOPERATIVE. STABLE VS. JUST GIVEN PO: PEPCID, NORCO, ODT JUAN JOSE.
[2019-06-01 23:37] LABS: ALANINE AMINOTRANSFERASE 30 U/L (12-78); ALBUMIN 3.1 G/DL (3.4-5.0); ALKALINE PHOSPHATASE 103 IU/L (46-116); ANION GAP 8 (8-16); ASPARTATE AMINO TRANSFERASE 48 U/L (10-37); BILIRUBIN,TOTAL 0.7 MG/DL (0.1-1.0); BLOOD UREA NITROGEN 4 MG/DL (7-18); BUN/CREATININE RATIO 6.2 (5.4-32.0); CALCIUM 8.4 MG/DL (8.5-10.1); CHLORIDE 103 MMOL/L (99-107); CREATININE 0.65 MG/DL (0.60-1.10); GLUCOSE 90 MG/DL (70-104); SODIUM 137 MMOL/L (135-145); TOTAL CARBON DIOXIDE 25.8 MMOL/L (24-32); TOTAL PROTEIN 6.2 G/DL (6.4-8.2); eGFR > 90 ML/MIN
[2019-06-01 23:45] LABS: ETHANOL 0.181 GM/DL (0.0-0.010); LIPASE 224 U/L (73-393)
[2019-06-01] MEDS ORDERED: potassium Cl 20 mEq SR tablet PO ONE (23:45)
--- NOTE | 2019-06-01 23:47 | NUR ---
PT UPDATED OF PROCESS OF MENTAL HEALTH HOD BY MYSELF AND MED REC COMPLETED. I INQUIRED ABOUT HIS PERSCRIPTION FOR SUBOXONE BY AN [facility] ER MD. HE STATES AFTER BEING ON PAIN MEDS FOR SO LONG WITH HIS PANCREATITIS THE OPTION OF USING SUBOXONE FOR WITHDRAWL WAS ATTEMPTED BRIEFLY. PT NOW CHANGED INTO GREEN SCRUBS AND BELONGINGS INVENTORIED. PT COOPERATIVE WITH PROCESS.
[2019-06-01] MEDS ORDERED: IBUP-2697 PO (23:51)
[2019-06-01] MEDS ORDERED: HYDR-3964 PO (23:53)
--- NOTE | 2019-06-02 00:10 | NUR ---
PT REPORTS HE SMOKES 1/2 PPD, BUT WILL NOT NEED NICOTINE PATCH WHILE HERE. STATES LAST ETOH WAS AROUND 9 PM AND HE HAS HAD 9 BEERS TODAY. PT STATES ETOH TREATMENT 20 YRS AGO AND THAT HE WAS SOBER FOR A WHILE AFTER.
[2019-06-02] MEDS ORDERED: LIDOcaine Viscous 15ml cup TP ONE (00:15)
[2019-06-02] MEDS ORDERED: mag hydrox/Alum hydrox/simeth 30ml oral suspension PO ONE (00:15)
--- NOTE | 2019-06-02 00:18 | NUR ---
STEVE NEFF UPDATED THAT PT RECEIVED MEDS 1 HR AGO AND HAVING INCREASING PAIN , NOW 7 OUT OF 10 TO MID AND UPPER ABDOME AND STATES "FEELS LIKE SEVERE HEARTBURN" GI COCKTAIL TO BE ORDERED.
[2019-06-02 00:36] LABS: CLARITY,URINE CLEAR (Clear); COLOR,URINE YELLOW (Yellow); GLUCOSE, URINE NEGATIVE (Neg); KETONES,URINE NEGATIVE (Neg); LEUKOCYTE ESTERASE ,URINE MODERATE (Neg); NITRITES, URINE NEGATIVE (Neg); OCCULT BLOOD,URINE NEGATIVE (Neg); PH,URINE 6.5 (4.8-8.0); PROTEIN,URINE NEGATIVE (Neg); UROBILINOGEN,URINE 0.2 E.U/dL (0.2-1.0)
[2019-06-02 00:39] LABS: UA COLLECTION TYPE URINAL
[2019-06-02 00:47] LABS: BACTERIA,URINE 3+ /HPF (Neg); MUCUS STRANDS NONE SEEN /LPF (Neg); RBC,URINE NONE SEEN /HPF (0-2); SQUAMOUS EPITHELIAL CELL,UR NONE SEEN /LPF (FEW)
[2019-06-02 00:49] LABS: URINE AMPHETAMINE SCREEN NEGATIVE (Neg); URINE BARBITUATE SCREEN NEGATIVE (Neg); URINE BENZODIAZEPINES SCREEN NEGATIVE (Neg); URINE CANNABINOID SCREEN NEGATIVE (Neg); URINE COCAINE SCREEN NEGATIVE (Neg); URINE METHADONE SCREEN NEGATIVE (Neg); URINE OPIATE SCREEN NEGATIVE (Neg); URINE PHENCYCLIDINE SCREEN NEGATIVE (Neg)
--- NOTE | 2019-06-02 01:40 | NUR ---
Pt. ambulated over from main ER accompainied by RN. Provided with water and warm blanket, pt. reports content. RR even and unlabored and no s/s of distress noted. Pt. continues to endorse S/I without a plan. He denies any A/V/AH and no delusional statments made. Pt. states, "I am here to get help. I want to quit alcohol, I am only hurting myself." He is eager to talk with [facility] in the morning to see what options might be available for him to receive help. Pt. continues to report some abdominal pain, head of bed raised for comort, will continue to monitor. IV remains intact in rt. FA.
--- NOTE | 2019-06-02 01:51 | NUR ---
Dr. Lozoya updated to patients increasing upper abd pain. Verbal received for msiv 4 mg x1 now and adtl 1 liter ns bolus. Also updated of indication for urine culture. MD to look at pt's chart further.
[2019-06-02] MEDS ORDERED: morphine 4 MG/ML inj SYRINge IV ONE (01:55)
[2019-06-02] MEDS ORDERED: normal saline 1000ml 1,000 ML IV ONE (01:55)
--- NOTE | 2019-06-02 02:47 | NUR ---
NS bolus in progress at this time at IV site in rt. FA. IV flushes well an no s/s of pain or redness at site. Pt. tolerating well. He continues to report rt. upper abdominal pain, IV mophine given per orders, will continue to monitor. Pt. requests a snack and sits up in bed eating at this time. RR even and unlabored.
--- NOTE | 2019-06-02 04:31 | NUR ---
Pt. awake at this time, laying in bed, makes occassional restless movements. RR even and unlabored, however pt. continues to report some chronic pain in rt. upper quadrant. This play writer encouraged pt. to try and relax and allow pain medication to work, he reports understanding, will continue to monitor.
--- NOTE | 2019-06-02 05:04 | NUR ---
Pt. sitting up in bed at this time, continues to be unable to sleep r/t chronic abdominal pain. Dr. Lozoya notified, obtained order for two Lamar-5 mg tablets, will administer and continue to monitor.
[2019-06-02] MEDS ORDERED: HYDROcodone/acetaminophen 5mg/325mg tablet PO ONE (05:05)
--- NOTE | 2019-06-02 05:56 | NUR ---
Pt. laying in bed at this time, reports decreased pain level, rr even and unlabored. No s/s of distress.
[2019-06-02] MEDS ORDERED: chlordiazePOXIDE 25mg capsule PO ONE (06:40)
[2019-06-02] MEDS ORDERED: chlordiazePOXIDE 25mg capsule PO PRN (06:40)
--- NOTE | 2019-06-02 08:00 | NUR ---
Pt complaning of anxiety. Spoke with Dr Chandler who ordered librium. Pt was medicated and appears calm and cooperative.
--- NOTE | 2019-06-02 10:00 | NUR ---
Pierre from the [facility] speaking with
[2019-06-02 10:33] VITALS: BP 147/75
--- NOTE | 2019-06-06 14:28 | NUR ---
ATTEMPTED TO CALL PT REGARDING HIS VISIT ON 06/02 REQUIRING AN RX FOR UTI. PHONE # ON RECORD IS NOT IN SERVICE, UNABLE TO LEAVE [facility].
== END 2019-06-02 10:37 | disposition home or self-care (01) ==
LOC: ER 22:24
DX: R10.13 Epigastric pain (principal); R11.10 Vomiting, unspecified; F10.10 Alcohol abuse, uncomplicated; K21.9 Gastro-esophageal reflux disease without esophagitis; G89.29 Other chronic pain; Z56.0 Unemployment, unspecified; Z90.49 Acquired absence of other specified parts of digestive tract; Z79.899 Other long term (current) drug therapy; Y90.9 Presence of alcohol in blood, level not specified
CPT/HCPCS: 80053; 80305; 80320; 81001; 83690; 84443; 85025; 87077; 87088; 96361; 96374; 99284; J2270; J7030

== ENCOUNTER 2019-06-08 00:22 | Emergency (ER) | payer MEDICARE ==
[~2019-06-08] VITALS: Ht 188 cm; Wt 93.2 kg
[~2019-06-08 00:22] MED LIST changes: -ACET1TAB12 PO; -FAMO20TA44 PO; +HYDR-3964 PO; +IBUP-2697 PO; -OMEP-297 PO; -ONDA4TAB6 PO; -PANT-47 PO; -POTA10TA19 PO; -SUCR1TAB34 PO
[2019-06-08 01:12] LABS: BASOPHILS # (AUTO) 0.1 X10'3 (0-0.2); EOSINOPHILS # (AUTO) 0.3 X10'3 (0-0.9); EOSINOPHILS % (AUTO) 4.9 % (0-6); HEMOGLOBIN 13.7 g/dl (14.0-17.9); LYMPHOCYTES # (AUTO) 1.5 X10'3 (1.1-4.8)
[2019-06-08 01:13] LABS: BASOPHILS % (AUTO) 1.4 % (0-1); HEMATOCRIT 40.6 % (42.0-52.0); LYMPHOCYTES % (AUTO) 21.5 % (21-51); MEAN CORPUSCULAR HEMOGLOBIN 30.1 PG (27.0-31.0); MEAN CORPUSCULAR HGB CONC 33.8 g/dL (33.0-36.5); MONOCYTES # (AUTO) 0.9 X10'3 (0-0.9); NEUTROPHILS # (AUTO) 4.2 X10'3 (1.8-7.7); NEUTROPHILS % (AUTO) 59.2 % (42-75); PLATELET COUNT 136 X10'3 (140-440); RED BLOOD COUNT 4.56 X10'6 (4.70-6.10); RED CELL DISTRIBUTION WIDTH 17.7 % (11.5-14.5); WHITE BLOOD COUNT 7.1 X10'3 (4.5-11.0)
[2019-06-08 01:23] LABS: ALANINE AMINOTRANSFERASE 40 U/L (12-78); ALBUMIN 3.4 G/DL (3.4-5.0); ALBUMIN/GLOBULIN RATIO 0.9 (1.1-1.5); ALKALINE PHOSPHATASE 141 IU/L (46-116); ANION GAP 9 (8-16); ASPARTATE AMINO TRANSFERASE 61 U/L (10-37); BILIRUBIN,TOTAL 0.6 MG/DL (0.1-1.0); BLOOD UREA NITROGEN 5 MG/DL (7-18); BUN/CREATININE RATIO 6.6 (5.4-32.0); CALCIUM 8.9 MG/DL (8.5-10.1); CHLORIDE 108 MMOL/L (99-107); CREATININE 0.76 MG/DL (0.60-1.10); GLUCOSE 89 MG/DL (70-104); LIPASE 271 U/L (73-393); POTASSIUM 3.5 MMOL/L (3.5-5.1); SODIUM 142 MMOL/L (135-145); TOTAL CARBON DIOXIDE 25.2 MMOL/L (24-32); eGFR > 90 ML/MIN
[2019-06-08 01:35] LABS: LARGE PLATELETS MODERATE; PLATELET ESTIMATE DECREASED
[2019-06-08 01:46] LABS: ETHANOL 0.164 GM/DL (0.0-0.010); MAGNESIUM 1.7 MG/DL (1.5-2.4)
[2019-06-08 01:49] LABS: PARTIAL THROMBOPLASTIN TIME 28 SECONDS (22-32)
[2019-06-08] MEDS ORDERED: PANT-47 PO (02:24)
[2019-06-08] MEDS ORDERED: morphine 4 MG/ML inj SYRINge IV ONE (02:25)
[2019-06-08] MEDS ORDERED: LIDOcaine Viscous 15ml cup TP ONE (02:25)
[2019-06-08] MEDS ORDERED: mag hydrox/Alum hydrox/simeth 30ml oral suspension PO ONE (02:25)
[2019-06-08 02:44] VITALS: BP 118/68
[2019-06-08 02:48] LABS: CLARITY,URINE CLOUDY (Clear); COLOR,URINE YELLOW (Yellow); GLUCOSE, URINE NEGATIVE (Neg); KETONES,URINE NEGATIVE (Neg); LEUKOCYTE ESTERASE ,URINE SMALL (Neg); NITRITES, URINE NEGATIVE (Neg); OCCULT BLOOD,URINE NEGATIVE (Neg); PROTEIN,URINE NEGATIVE (Neg); UROBILINOGEN,URINE 0.2 E.U/dL (0.2-1.0)
[2019-06-08 03:04] LABS: URINE AMPHETAMINE SCREEN NEGATIVE (Neg); URINE BARBITUATE SCREEN NEGATIVE (Neg); URINE BENZODIAZEPINES SCREEN POSITIVE (Neg); URINE CANNABINOID SCREEN NEGATIVE (Neg); URINE COCAINE SCREEN NEGATIVE (Neg); URINE METHADONE SCREEN NEGATIVE (Neg); URINE OPIATE SCREEN NEGATIVE (Neg); URINE PHENCYCLIDINE SCREEN NEGATIVE (Neg)
[2019-06-08 03:16] LABS: UA COLLECTION TYPE URINAL
[2019-06-08 03:18] LABS: BACTERIA,URINE 4+ /HPF (Neg); RBC,URINE 0-2 /HPF (0-2)
[2019-06-08 03:19] LABS: MUCUS STRANDS NONE SEEN /LPF (Neg); SQUAMOUS EPITHELIAL CELL,UR FEW /LPF (FEW); WBC CLUMPS,URINE MODERATE /HPF (NEGATIVE)
--- NOTE | 2019-06-08 09:15 | NUR ---
called phone no longer in service.
== END 2019-06-08 02:46 | disposition home or self-care (01) ==
LOC: ER 00:23
DX: F10.129 Alcohol abuse with intoxication, unspecified (principal); R10.9 Unspecified abdominal pain; R11.10 Vomiting, unspecified; K21.9 Gastro-esophageal reflux disease without esophagitis; G89.29 Other chronic pain; Z90.49 Acquired absence of other specified parts of digestive tract; Z60.2 Problems related to living alone; Z56.0 Unemployment, unspecified; Z79.899 Other long term (current) drug therapy; Y90.0 Blood alcohol level of less than 20 mg/100 ml
CPT/HCPCS: 36415; 80053; 80305; 80320; 81001; 83690; 83735; 85025; 85610; 85730; 87077; 87088; 96374; 99283; J2270

== ENCOUNTER 2019-06-20 20:53 | Emergency (ER) | payer MEDICARE ==
[~2019-06-20] VITALS: Ht 188 cm; Wt 93.1 kg
[~2019-06-20 20:53] MED LIST changes: +PANT-47 PO
[2019-06-20 21:06] VITALS: BP 130/86
[2019-06-20 21:57] LABS: CLARITY,URINE CLEAR (Clear); GLUCOSE, URINE NEGATIVE (Neg); KETONES,URINE NEGATIVE (Neg); LEUKOCYTE ESTERASE ,URINE SMALL (Neg); NITRITES, URINE NEGATIVE (Neg); OCCULT BLOOD,URINE TRACE-LYSED (Neg); PROTEIN,URINE NEGATIVE (Neg); UROBILINOGEN,URINE 0.2 E.U/dL (0.2-1.0)
[2019-06-20 22:03] LABS: UA COLLECTION TYPE VOIDED
[2019-06-20 22:04] LABS: COLOR,URINE STRAW (Yellow)
[2019-06-20 22:07] LABS: BASOPHILS # (AUTO) 0.1 X10'3 (0-0.2); BASOPHILS % (AUTO) 0.8 % (0-1); EOSINOPHILS # (AUTO) 0.2 X10'3 (0-0.9); EOSINOPHILS % (AUTO) 2.5 % (0-6); HEMOGLOBIN 12.7 g/dl (14.0-17.9); LYMPHOCYTES # (AUTO) 1.3 X10'3 (1.1-4.8); LYMPHOCYTES % (AUTO) 14.6 % (21-51); MEAN CORPUSCULAR HEMOGLOBIN 29.6 PG (27.0-31.0); MEAN CORPUSCULAR HGB CONC 33.3 g/dL (33.0-36.5); MEAN CORPUSCULAR VOLUME 88.7 FL (78-98); MEAN PLATELET VOLUME 11.2 FL (7.4-10.4); MONOCYTES # (AUTO) 0.9 X10'3 (0-0.9); MONOCYTES % (AUTO) 10.3 % (2-12); NEUTROPHILS # (AUTO) 6.3 X10'3 (1.8-7.7); NEUTROPHILS % (AUTO) 71.8 % (42-75); PLATELET COUNT 111 X10'3 (140-440); RED BLOOD COUNT 4.28 X10'6 (4.70-6.10); WHITE BLOOD COUNT 8.7 X10'3 (4.5-11.0)
[2019-06-20 22:13] LABS: BACTERIA,URINE 1+ /HPF (Neg); MUCUS STRANDS NONE SEEN /LPF (Neg); RBC,URINE NONE SEEN /HPF (0-2); SQUAMOUS EPITHELIAL CELL,UR NONE SEEN /LPF (FEW); WBC,URINE 0-4 /HPF (0-4)
[2019-06-20 22:22] LABS: ALANINE AMINOTRANSFERASE 42 U/L (12-78); ALBUMIN 3.2 G/DL (3.4-5.0); ALBUMIN/GLOBULIN RATIO 0.9 (1.1-1.5); ALKALINE PHOSPHATASE 166 IU/L (46-116); ANION GAP 12 (8-16); ASPARTATE AMINO TRANSFERASE 54 U/L (10-37); BLOOD UREA NITROGEN 4 MG/DL (7-18); BUN/CREATININE RATIO 6.6 (5.4-32.0); CHLORIDE 104 MMOL/L (99-107); CREATININE 0.61 MG/DL (0.60-1.10); GLUCOSE 96 MG/DL (70-104); LIPASE 114 U/L (73-393); POTASSIUM 3.5 MMOL/L (3.5-5.1); SODIUM 139 MMOL/L (135-145); TOTAL CARBON DIOXIDE 22.7 MMOL/L (24-32); TOTAL PROTEIN 6.8 G/DL (6.4-8.2); eGFR > 90 ML/MIN
[2019-06-20] MEDS ORDERED: mag hydrox/Alum hydrox/simeth 30ml oral suspension PO ONE (22:30)
[2019-06-20] MEDS ORDERED: LIDOcaine Viscous 15ml cup MM ONE (22:30)
[2019-06-20] MEDS ORDERED: sucralfate 1 gm tablet PO ONE (22:30)
[2019-06-20] MEDS ORDERED: LORA-269 PO (22:33)
[2019-06-20] MEDS ORDERED: PANT-47 PO (22:33)
[2019-06-20] MEDS ORDERED: GABA300C PO (22:33)
[2019-06-20] MEDS ORDERED: pantoprazole 40mg Tablet.DR PO ONE (23:10)
[2019-06-20 23:48] LABS: LARGE PLATELETS MODERATE; PLATELET ESTIMATE DECREASED
== END 2019-06-20 23:20 | disposition home or self-care (01) ==
LOC: ER 20:54
DX: K29.20 Alcoholic gastritis without bleeding (principal); F10.10 Alcohol abuse, uncomplicated; K21.9 Gastro-esophageal reflux disease without esophagitis; G89.29 Other chronic pain; Z90.49 Acquired absence of other specified parts of digestive tract; Z56.0 Unemployment, unspecified; Z60.2 Problems related to living alone; Z79.899 Other long term (current) drug therapy; Y90.9 Presence of alcohol in blood, level not specified
CPT/HCPCS: 36415; 80053; 81001; 83690; 85025; 87088; 99284

== ENCOUNTER 2019-12-13 23:10 | Emergency (ER) | payer MEDICARE ==
[~2019-12-13] VITALS: Ht 188 cm; Wt 95.5 kg
[~2019-12-13 23:10] MED LIST changes: +GABA300C PO; +LORA-269 PO
[2019-12-13 23:38] LABS: BASOPHILS # (AUTO) 0.1 X10'3 (0-0.2); BASOPHILS % (AUTO) 0.5 % (0-1); EOSINOPHILS # (AUTO) 0.1 X10'3 (0-0.9); EOSINOPHILS % (AUTO) 0.9 % (0-6); HEMATOCRIT 37.5 % (42.0-52.0); HEMOGLOBIN 12.3 g/dl (14.0-17.9); LYMPHOCYTES # (AUTO) 1.2 X10'3 (1.1-4.8); LYMPHOCYTES % (AUTO) 9.8 % (21-51); MEAN CORPUSCULAR HEMOGLOBIN 32.5 PG (27.0-31.0); MEAN CORPUSCULAR VOLUME 98.7 FL (78-98); MEAN PLATELET VOLUME 9.8 FL (7.4-10.4); MONOCYTES # (AUTO) 1.4 X10'3 (0-0.9); MONOCYTES % (AUTO) 11.6 % (2-12); NEUTROPHILS # (AUTO) 9.3 X10'3 (1.8-7.7); NEUTROPHILS % (AUTO) 77.2 % (42-75); PLATELET COUNT 125 X10'3 (140-440); RED CELL DISTRIBUTION WIDTH 21.9 % (11.5-14.5)
[2019-12-13] MEDS ORDERED: normal saline 1000ml 1,000 ML IV ONE (23:40)
[2019-12-13 23:52] LABS: ALANINE AMINOTRANSFERASE 16 U/L (12-78); ALBUMIN 2.2 G/DL (3.4-5.0); ALKALINE PHOSPHATASE 179 IU/L (46-116); ANION GAP 9 (8-16); ASPARTATE AMINO TRANSFERASE 56 U/L (10-37); BILIRUBIN,TOTAL 4.2 MG/DL (0.1-1.0); BLOOD UREA NITROGEN 5 MG/DL (7-18); CALCIUM 7.8 MG/DL (8.5-10.1); CHLORIDE 102 MMOL/L (99-107); CREATININE 0.83 MG/DL (0.60-1.10); GLUCOSE 85 MG/DL (70-104); POTASSIUM 3.3 MMOL/L (3.5-5.1); SODIUM 140 MMOL/L (135-145); TOTAL CARBON DIOXIDE 28.9 MMOL/L (24-32); eGFR > 90 ML/MIN
[2019-12-13 23:58] LABS: AMYLASE 116 U/L (25-115); ETHANOL < 0.010 GM/DL (0.0-0.010); LIPASE 433 U/L (73-393)
[2019-12-13 23:59] LABS: ANISOCYTOSIS 3+; PLATELET ESTIMATE DECREASED; SPHEROCYTES FEW
[2019-12-14 00:14] LABS: ALBUMIN/GLOBULIN RATIO 0.5 (1.1-1.5); TOTAL PROTEIN 6.3 G/DL (6.4-8.2)
--- NOTE | 2019-12-14 01:02 | NUR ---
pt getting a paracentesis done. pt has first bottle filling up with yellow ascitic fluid from abd. pt tolerating well. Per Dr. Lozoya, when first bottle fills up, place 2nd bottle to drain then reassess.
[2019-12-14] MEDS ORDERED: POTA20TA19 PO (01:23)
[2019-12-14] MEDS ORDERED: FURO-150 PO (01:23)
--- NOTE | 2019-12-14 01:24 | NUR ---
2nd liter placed for paracentesis drainage.
--- NOTE | 2019-12-14 01:28 | NUR ---
2nd liter has been removed via paracentesis. Per primary RN, wants to re-eval pt before we take off any more fluid. vitals have been updated and are WNL. pt still reports pain and SOB. MD currently off the floor for emergency on the unit. Will update MD when he returns.
--- NOTE | 2019-12-14 01:35 | NUR ---
MD returned to floor and was updated on pt condition. He gave verbal to try and take off a 3rd liter of fluid. When I entered the room the catheter was laying on the floor. Small amount of fluid draining from insertion site. MD and Primary RN made aware.
[2019-12-14] MEDS ORDERED: HYDROcodone/acetaminophen 5mg/325mg tablet PO ONE (01:50)
[2019-12-14 01:59] VITALS: BP 109/62
[2019-12-14 02:10] LABS: AMYLASE,BODY FLUID 16 U/L; LDH,BODY FLUID 27 U/L
[2019-12-14 02:13] LABS: ALBUMIN,BODY FLUID < 0.6 G/DL
[2019-12-14 02:26] LABS: BFAPPEAR CLEAR; TOTAL PROTEIN,BODY FLUID < 2.0 G/DL
[2019-12-14 02:27] LABS: BFCOLOR YELLOW; BFVOLUME 46 ML
[2019-12-14 02:41] LABS: BF RBC COUNT 123 /CU MM; BF WBC COUNT 88 /CU MM (0-1000); LYMPHOCYTES,BODY FLUID 41 %; MONOCYTES,BODY FLUID 47 %; NEUTROPHILS,BODY FLUID 12 %
== END 2019-12-14 02:19 | disposition home or self-care (01) ==
LOC: ER 23:11
DX: R18.8 Other ascites (principal); R10.84 Generalized abdominal pain; R11.0 Nausea; K21.9 Gastro-esophageal reflux disease without esophagitis; G89.29 Other chronic pain; F10.10 Alcohol abuse, uncomplicated; Z87.11 Personal history of peptic ulcer disease; Z87.440 Personal history of urinary (tract) infections; Z90.49 Acquired absence of other specified parts of digestive tract; Z60.2 Problems related to living alone; Z56.0 Unemployment, unspecified; Z79.899 Other long term (current) drug therapy; Y90.9 Presence of alcohol in blood, level not specified
CPT/HCPCS: 36415; 49083; 80053; 80320; 82042; 82150; 83615; 83690; 83880; 83986; 84157; 85025; 85610; 89051; 99285